=== PATIENT | female | born 1970 | race Caucasian/White ===

== ENCOUNTER 2024-08-16 19:59 | Emergency (ER) | payer SELFPAY ==
[2024-08-16 20:01] VITALS: BP 138/93
[2024-08-16 21:29] VITALS: BMI 26.2
[2024-08-16 21:32] VITALS: BP 139/90
[2024-08-16] MEDS: NSS 1000 IV (22:35)
[2024-08-16] MEDS: COMPAZINE 10 MG IV (22:38)
[2024-08-16] MEDS: TORADOL 30 MG IV (22:39)
[2024-08-16] MEDS: BENADRYL 25 MG IV (22:41)
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
== END 2024-08-17 00:29 | disposition home or self-care (01) ==
LOC: EMR 19:59
PROVIDERS: EMERGENCY PHYSICIAN Emergency Medicine; FAMILY PHYSICIAN Family Medicine
DX: S16.1XXA Strain of muscle, fascia and tendon at neck level, initial encounter (principal); S39.012A Strain of muscle, fascia and tendon of lower back, initial encounter; G43.909 Migraine, unspecified, not intractable, without status migrainosus; I10 Essential (primary) hypertension; V43.52XA Car driver injured in collision with other type car in traffic accident, initial encounter
CPT/HCPCS: 96374; 96375; 96361; 99284